=== PATIENT | male | born 1960 | race Two or more races ===

== ENCOUNTER 2020-02-15 19:14 | Emergency (ER) | payer SELFPAY ==
[~2020-02-15] VITALS: Ht 170.2 cm; Wt 68.0 kg
[2020-02-15] MEDS ORDERED: diphenhdrAMINE HCL 50 MG/1 ML VL IM ONE ×2 (20:00→20:30)
[2020-02-15] MEDS ORDERED: HALOPERIDOL LACTATE 5 MG/ML INJ VIAL IM ONE ×2 (20:00→20:15)
[2020-02-15] MEDS ORDERED: LORazepam 2MG/ML-1ML VIAL IM ONE ×2 (20:00→20:30)
[2020-02-15 21:27] LABS: Eosinophils # (auto) 0.2 10 ^3/uL (0-0.8); Hematocrit 24.7 % (41.0-53.0); Hemoglobin 7.8 g/dL (13.5-17.5); Monocytes # (auto) 0.6 10 ^3/uL (0-1.3); Neutrophils # (auto) 5.3 10 ^3/uL (1.6-8.6); Red Blood Cells 2.93 10^6/uL (4.5-5.90)
[2020-02-15 21:29] LABS: Basophils # (auto) 0 10 ^3/uL (0-0.2); Basophils % (auto) 0.7 % (0.0-2.0); Eosinophils % (auto) 3.1 % (0.0-7.0); Lymphocytes # (auto) 0.8 10 ^3/uL (0.4-5.4); Lymphocytes % (auto) 11.8 % (10.0-50.0); Mean Corpuscular Hemoglobin 26.8 pg (28.0-32.0); Mean Corpuscular Hgb Conc. 31.7 g/dL (32.0-36.0); Mean Corpuscular Volume 84.5 fL (80.0-100.0); Monocytes % (auto) 8.1 % (0.0-12.0); Neutrophils % (auto) 76.3 % (37.0-80.0); Nucleated Red Blood Cells % 0.1 %; Platelet Count (auto) 455 10^3/uL (140-450); Red Cell Distribution Width 18.6 % (11.8-14.3)
[2020-02-15 21:44] LABS: Albumin 3.2 g/dL (3.4-5.0); Anion Gap 5 (5-15); Blood Alcohol < 3.0 mg/dL (0-5); Blood Urea Nitrogen 20 mg/dL (7-18); Calcium 8.1 mg/dL (8.5-10.1); Carbon Dioxide 26 mmol/L (21-32); Chloride 111 mmol/L (98-107); Glucose 111 mg/dL (74-106); Potassium 3.7 mmol/L (3.5-5.1); Sodium 142 mmol/L (136-145)
[2020-02-15 21:47] LABS: Alanine Aminotransferase 14 U/L (16-61); Alkaline Phosphatase 95 U/L (45-117); Aspartate Aminotransferase 12 U/L (15-37); Bilirubin, Total 0.2 mg/dL (0.2-1.0); GFR African American 128 mL/min; GFR Non-African American 106 mL/min; Total Protein 6.7 g/dL (6.4-8.2)
[2020-02-15 23:37] LABS: Alcohol, Urine < 3.0 mg/dL (0-10); Amphetamine Screen, Urine NEGATIVE (NEGATIVE); Barbiturate Scree,Urine NEGATIVE (NEGATIVE); Benzodiazephine Screen, Urine NEGATIVE (NEGATIVE); Cannabinoid Screen, Urine NEGATIVE (NEGATIVE); Cocaine Screen, Urine NEGATIVE (NEGATIVE); Opiate Scree,Urine NEGATIVE (NEGATIVE); Phencyclidine Screen, Urine NEGATIVE (NEGATIVE)
[2020-02-16] MEDS ORDERED: LORazepam 0.5 MG TAB PO ONE (02:00)
[2020-02-17] MEDS ORDERED: LORazepam 2MG/ML-1ML VIAL IM ONE
[2020-02-17] MEDS ORDERED: diphenhdrAMINE HCL 50 MG/1 ML VL IM ONE
[2020-02-17] MEDS ORDERED: HALOPERIDOL LACTATE 5 MG/ML INJ VIAL IM ONE
[2020-02-17 14:19] VITALS: BP 152/93
== END 2020-02-17 12:46 | disposition short-term general hospital (02) ==
LOC: EDBD 19:14 → ER 19:14
DX: F20.9 Schizophrenia, unspecified (principal); F17.210 Nicotine dependence, cigarettes, uncomplicated; Z20.828 Contact with and (suspected) exposure to other viral communicable diseases
CPT/HCPCS: 36415; 80053; 80307; 80320; 85025; 87426; 96372; 99285; J1200; J1630; J2060